=== PATIENT | female | born 1935 | race African-American/Black ===

== ENCOUNTER 2018-05-10 13:47 | Observation (INO) | payer OTHER, MEDICAID ==
[~2018-05-10] VITALS: Ht 165.1 cm; Wt 72.6 kg
[~2018-05-10 13:47] MED LIST: ALBUTEROL INH INH; DOCU-138 PO; DOXY150T PO; GUAI600T88 PO; HYDR-523 PO; HYDR25TA PO; LOSA50TA3 PO; METO-385 PO; PREG20SO PO; S350 PO
[2018-05-10] MEDS ORDERED: SODIUM CHLORIDE 0.9% 1000ML BAG (SEPSIS BOLUS) IV ONE (14:30)
[2018-05-10] MEDS ORDERED: LEVOFLOXACIN 750MG PREMIX 150 ML IV ONE (14:30)
[2018-05-10 15:41] LABS: BASOPHILS % 0.7 % (0.0-2.0); CHLORIDE 114 mEq/L (98-107); EOSINOPHILS % 3.2 % (0.0-5.0); HEMATOCRIT. 24.8 % (36.0-48.0); HEMOGLOBIN. 7.9 g/dL (12.0-16.0); LYMPHOCYTES % 43.9 % (20.0-50.0); MEAN CORPUSCULAR HEMOGLOBIN 23.5 pg (28.0-32.0); MEAN CORPUSCULAR VOLUME 73.4 fL (81.0-99.0); MEAN PLATELET VOLUME 9.6 fl (7.4-10.4); MONOCYTES % 6.7 % (2.0-8.0); NEUTROPHILS % 45.5 % (40.0-76.0); PLATELET 181 x1000/uL (130-400); RED BLOOD CELL COUNT 3.38 mill/uL (4.2-5.4); RED CELL DISTRIBUTION WIDTH 15.5 % (11.6-14.6)
[2018-05-10 15:42] LABS: INR 1.1; PROTHROMBIN TIME 11.7 sec (9.4-11.6)
[2018-05-10 17:21] LABS: CLARITY URINE CLOUDY (CLEAR); COLOR URINE YELLOW (YELLOW); KETONES URINE NEGATIVE (NEGATIVE); LEUKOCYTE ESTERASE URINE 3+ (NEGATIVE); NITRITE URINE NEGATIVE (NEGATIVE); OCCULT BLOOD URINE NEGATIVE (NEGATIVE); PH URINE 5.5 (4.5-8.0); PROTEIN URINE 1+ (NEGATIVE); SPECIFIC GRAVITY URINE 1.015 (1.005-1.030); UROBILINOGEN URINE 0.2 E.U./dL (0.2-1.0)
[2018-05-10] MEDS ORDERED: ONDANSETRON HCL 4MG/2ML VIAL IV STA (17:38)
[2018-05-10] MEDS ORDERED: MORPHINE SULFATE 4 MG/ML CPJ (NOT FOR IM USE) IV STA (17:38)
[2018-05-10] MEDS ORDERED: HYDROCODONE/ACETAMINOPHEN 5/325MG TABLET PO ONE (20:45)
[2018-05-10 21:10] VITALS: BP_SYST 144; BP_DIAS 144; BP_DIAS 61
[2018-05-10] MEDS ORDERED: CEFTRIAXONE 1 G PREMIX 50 ML IV SCH ×2 (22:30→22:45)
[2018-05-10] MEDS ORDERED: ONDANSETRON HCL 4MG/2ML VIAL IV PRN (22:30)
[2018-05-10] MEDS ORDERED: ACETAMINOPHEN 325MG TABLET PO PRN (22:30)
[2018-05-10] MEDS ORDERED: MAGNESIUM/ALUMINUM HYDROXIDE/SIMETHICONE 30ML UDC PO PRN (22:30)
[2018-05-10] MEDS ORDERED: DEXTROSE 50% WATER 50ML SYRINGE IV PRN (22:45)
[2018-05-10] MEDS: SODIUM CHLORIDE 0.45% 1,000 ML IV SCH (22:57)
[2018-05-10] MEDS: TRAMADOL 50MG TABLET PO PRN (22:58)
[2018-05-11 00:11] VITALS: BP 119/47
[2018-05-11] MEDS: CEFTRIAXONE 1 G PREMIX 50 ML IV SCH ×2 (00:27→23:39)
[2018-05-11] MEDS: IPRATROPIUM/ALBUTEROL 0.5-3(2.5)MG/3ML NEB INH SCH ×4 (00:41→19:53)
[2018-05-11] MEDS: MORPHINE SULFATE 4 MG/ML CPJ (NOT FOR IM USE) IV PRN ×4 (03:18→22:47)
[2018-05-11 04:00] VITALS: BP 102/54
[2018-05-11] MEDS: BLOOD SUGAR DIAGNOSTIC STRIP TEST SCH ×4 (05:06→21:43)
[2018-05-11] MEDS: TRAMADOL 50MG TABLET PO PRN ×2 (06:11→14:25)
[2018-05-11 07:04] LABS: CHLORIDE 115 mEq/L (98-107)
[2018-05-11 07:11] LABS: LDL CHOLESTEROL 71 mg/dL (5-100)
[2018-05-11 07:12] LABS: TOTAL IRON BINDING CAPACITY 197 ug/dL (250-450)
[2018-05-11 07:13] LABS: HDL CHOLESTEROL 48 mg/dL (40-59)
[2018-05-11 07:15] LABS: T4 FREE 0.88 ng/dL (0.76-1.46)
[2018-05-11 07:22] LABS: BASOPHILS % 0.6 % (0.0-2.0); EOSINOPHILS % 5.4 % (0.0-5.0); HEMATOCRIT. 27.2 % (36.0-48.0); HEMOGLOBIN. 8.7 g/dL (12.0-16.0); LYMPHOCYTES % 48.7 % (20.0-50.0); MEAN CORPUSCULAR HEMOGLOBIN 23.4 pg (28.0-32.0); MEAN CORPUSCULAR VOLUME 73.4 fL (81.0-99.0); MONOCYTES % 6.9 % (2.0-8.0); NEUTROPHILS % 38.4 % (40.0-76.0); PLATELET 194 x1000/uL (130-400); RED CELL DISTRIBUTION WIDTH 15.5 % (11.6-14.6)
[2018-05-11 07:31] LABS: VITAMIN B12 SERUM 630 pg/mL (211-911)
[2018-05-11] MEDS: INSULIN LISPRO 100 UNITS/ML SUBCUT SCH ×4 (07:42→21:42)
[2018-05-11 08:00] VITALS: BP 132/43
[2018-05-11] MEDS ORDERED: METOPROLOL TARTRATE 50MG TABLET PO SCH (09:00)
[2018-05-11] MEDS ORDERED: HYDRALAZINE 20MG/ML VIAL IV PRN (10:45)
[2018-05-11] MEDS: SODIUM CHLORIDE 0.45% 1,000 ML IV SCH ×2 (12:34→23:39)
[2018-05-11] MEDS ORDERED: BISACODYL 10MG SUPP PR PRN (17:30)
[2018-05-11] MEDS ORDERED: BISACODYL 10MG SUPP PR NR (17:30)
[2018-05-11 20:00] VITALS: BP 143/52
[2018-05-12] VITALS (7 sets, daily range): BP systolic 112–208; BP diastolic 46–91
[2018-05-12] MEDS: IPRATROPIUM/ALBUTEROL 0.5-3(2.5)MG/3ML NEB INH SCH ×4 (01:12→19:50)
[2018-05-12] MEDS: INSULIN LISPRO 100 UNITS/ML SUBCUT SCH ×3 (08:10→17:03)
[2018-05-12] MEDS: BLOOD SUGAR DIAGNOSTIC STRIP TEST SCH ×3 (08:17→17:03)
[2018-05-12] MEDS: SODIUM CHLORIDE 0.45% 1,000 ML IV SCH (14:12)
== END 2018-05-12 21:20 | disposition home or self-care (01) ==
LOC: ER 13:47 → 7WST 14:30 → EDBEDREQ 14:30 → INTOOBSV 14:30 → EDBEDREQ 18:45 → EDBEDREQSVC 18:45 → ENRESERV 20:05
PROVIDERS: ADMIT Internal Medicine; ATTEND Internal Medicine
DX: N39.0 Urinary tract infection, site not specified (principal); K56.41 Fecal impaction; R00.1 Bradycardia, unspecified; E86.0 Dehydration; D64.9 Anemia, unspecified; D72.819 Decreased white blood cell count, unspecified; E11.649 Type 2 diabetes mellitus with hypoglycemia without coma; I11.0 Hypertensive heart disease with heart failure; I50.32 Chronic diastolic (congestive) heart failure; I25.10 Atherosclerotic heart disease of native coronary artery without angina pectoris; N17.9 Acute kidney failure, unspecified; Z87.442 Personal history of urinary calculi
CPT/HCPCS: 36415; 70450; 71250; 74018; 74176; 80053; 80061; 81003; 82607; 82962; 83540; 83550; 83605; 84439; 84443; 84484; 85025; 85610; 87040; 87077; 87086; 93005; 96361; 96365; 96366; 96367; 96375; 96376; 97162; 99291; G0378; J0360; J0696; J1815; J1956; J2270; J2405; J7030; J7620